=== PATIENT | female | born 1945 | race Caucasian/White ===

== ENCOUNTER → 2020-09-13 | Day surgery (SDC) | payer MEDICARE ==
[~2020-09-13] VITALS: Ht 167.6 cm; Wt 57.0 kg
[~2020-09-13] MED LIST: BIVALIRUDIN 250 MG ONE; CHOL10003 PO; FENTANYL PF 100 MCG/2ML ONE; FURO20TA3 PO; HEPARIN 1,000 UNITS/ML, 10ML ONE; LIDOCAINE-MPF 1%, 5ML ONE; LISI-170 PO; METO25TA2 PO; MIDAZOLAM 1 MG/ML, 5ML ONE; MULT-717 PO; SODIUM CHLORIDE 0.9% 1,000 ML IV SCH; SPIR25TA5 PO; TICAGRELOR 90 MG TABLET ONE; VERAPAMIL 2.5 MG/ML, 2ML ONE
[2020-09-13 07:12] LABS: BASOPHILS % (AUTO) 1 % (0-1); EOSINOPHILS % (AUTO) 1 % (1-7); LYMPHOCYTES % (AUTO) 11 % (22-44); MEAN CORPUSCULAR HEMOGLOBIN 33.9 pg (27.0-34.8); MEAN CORPUSCULAR HGB CONC 33.9 g/dL (32.4-35.8); MEAN PLATELET VOLUME 8.7 fL (7.4-10.4); MONOCYTES % (AUTO) 9 % (2-9); NEUTROPHILS % (AUTO) 78 % (42-75); PLATELET COUNT 170 x10^3/uL (130-400); RED BLOOD COUNT 4.86 x10^6/uL (3.82-5.3); RED CELL DISTRIBUTION WIDTH 14.8 % (9.6-15.2)
[2020-09-13 07:23] LABS: ANION GAP 5 mmol/L (5-15); CALCIUM 9.2 mg/dL (8.5-10.1); CHLORIDE 91 mmol/L (98-107); CREATININE 0.89 mg/dL (0.55-1.02)
[2020-09-13 07:24] VITALS: BP 114/67
== END | disposition home or self-care (01) ==
LOC: OUT 06:02
PROVIDERS: ATTEND Internal Medicine Cardiovascular Disease
DX: I08.1 Rheumatic disorders of both mitral and tricuspid valves (principal); I25.10 Atherosclerotic heart disease of native coronary artery without angina pectoris; I50.20 Unspecified systolic (congestive) heart failure; I42.8 Other cardiomyopathies; I27.20 Pulmonary hypertension, unspecified; Z92.21 Personal history of antineoplastic chemotherapy; J90 Pleural effusion, not elsewhere classified; Z20.822 Contact with and (suspected) exposure to COVID-19; Z79.899 Other long term (current) drug therapy; Z85.3 Personal history of malignant neoplasm of breast; Z87.891 Personal history of nicotine dependence; Z91.013 Allergy to seafood
CPT/HCPCS: 36415; 80048; 85025; 87635; 93312; 93321; 93325; 93453; C1769; C1894; J1644; J2250; J3010; Q9967; J0583

== ENCOUNTER 2020-11-13 06:14 | Inpatient (IN) | payer MEDICARE ==
[~2020-11-13] VITALS: Ht 167.6 cm; Wt 58.0 kg
[2020-11-14 14:07] VITALS: BP 104/65
== END 2020-11-14 14:23 | disposition home or self-care (01) | DRG 266 ==
LOC: CACL 06:14 → ORIP 06:26 → 5SO 10:41
PROVIDERS: ADMIT Internal Medicine Cardiovascular Disease; ATTEND Internal Medicine Cardiovascular Disease
PROC: 02UG3JZ Supplement Mitral Valve with Synthetic Substitute, Percutaneous Approach (ICD-10-PCS; principal; 2020-11-13)
PROC: B24BZZ4 Ultrasonography of Heart with Aorta, Transesophageal (ICD-10-PCS; 2020-11-13)
PROC: B54BZZA Ultrasonography of Right Lower Extremity Veins, Guidance (ICD-10-PCS; 2020-11-13)
DX: I34.0 Nonrheumatic mitral (valve) insufficiency (principal); Z00.6 Encounter for examination for normal comparison and control in clinical research program; I50.43 Acute on chronic combined systolic (congestive) and diastolic (congestive) heart failure; I42.0 Dilated cardiomyopathy; Z20.822 Contact with and (suspected) exposure to COVID-19; I11.0 Hypertensive heart disease with heart failure